=== PATIENT | female | born 1950 | race Asian ===

== ENCOUNTER 2016-12-06 15:03 | Emergency (ER) | payer OTHER, MEDICAID ==
[~2016-12-06] VITALS: Ht 152.4 cm; Wt 41.7 kg
[2016-12-06 15:45] VITALS: BP 119/67
== END 2016-12-06 15:59 | disposition left against medical advice (07) ==
LOC: ED 15:03
DX: R07.89 Other chest pain (principal); E03.9 Hypothyroidism, unspecified; G89.29 Other chronic pain; I48.0 Paroxysmal atrial fibrillation; N18.9 Chronic kidney disease, unspecified; I42.9 Cardiomyopathy, unspecified
CPT/HCPCS: 83880; 84439